=== PATIENT | female | born 1965 | race Caucasian/White ===

== ENCOUNTER 2020-09-02 02:16 | Emergency (ER) | payer BC, SELFPAY ==
--- NOTE | 2020-09-02 | ECG_ITS ---
Test Reason : TACHY Blood Pressure : / mmHG Vent. Rate : 124 BPM Atrial Rate : 124 BPM P-R Int : 150 ms QRS Dur : 072 ms QT Int : 298 ms P-R-T Axes : 064 065 040 degrees QTc Int : 428 ms Sinus tachycardia Otherwise normal ECG No previous ECGs available Referred By: Edwin Elliott Electronically Signed By:Kian Gramajo
[2020-09-02 02:25] VITALS: BP 216/110; PULSE 120; RESP 18; TEMP 37.1; O2SAT 98; BMI 23.1
[2020-09-02] MEDS: 0.9 % Sodium Chloride 1,000 ML 999 ML IV ×2 (02:41→03:44)
[2020-09-02] MEDS: ondansetron HCL 4 MG/2 ML VIAL IVPUSH (02:41)
[2020-09-02] MEDS: LORazepam 2 MG/ML VIAL IVPUSH ×2 (02:42→03:44)
[2020-09-02 02:49] VITALS: BP 170/90; PULSE 109; RESP 20; O2SAT 96
[2020-09-02 02:53] LABS: Basophils Absolute Auto 0.1 X10*3/uL (0.0-0.2); Basophils Percent Auto 0.8 % (0-2); Eosinophils Absolute Auto 0.1 X10*3/uL (0.0-0.4); Eosinophils Percent Auto 0.9 % (0-4); Hemoglobin 14.5 g/dl (12.0-16.0); Imm Gran Abs Auto 0.03 X10*3/uL (0.00-0.03); Imm Gran Pct Auto 0.4 % (0.0-0.4); Lymphocytes Percent Auto 12.6 % (20-40); MANUAL DIFF FLAG NO; Mean Corpuscular HGB Conc 36.3 g/dl (31.0-35.0); Mean Corpuscular Volume 88.3 fL (80-98); Mean Platelet Volume 9.6 fL (9.4-12.3); Monocytes Absolute Auto 0.7 X10*3/uL (0.1-1.2); Monocytes Percent Auto 9.2 % (2-11); Neutrophils Absolute Auto 5.8 X10*3/uL (2.0-8.3); Neutrophils Percent Auto 76.1 % (45-73); Platelet Count 221 X10*3/uL (160-400); Red Blood Count 4.53 X10*6/uL (4.20-5.50); Red Cell Distribution Width 11.8 % (11.0-16.0); White Blood Count 7.6 X10*3/uL (4.8-10.8)
[2020-09-02 03:13] LABS: Ethanol < 10 mg/dL
--- NOTE | 2020-09-02 03:19 | PC.NURSE ---
due to elevated CIWA 2nd IV established. pt put on seziure precautions.
[2020-09-02 03:23] LABS: Alanine Aminotransferase 37 U/L (0-31); Albumin Level 4.9 g/dL (3.5-5.0); Alkaline Phosphatase 97 U/L (39-117); Anion Gap 15 (12-20); Aspartate Amino Transferase 69 U/L (5-31); Bilirubin Total 0.6 mg/dL (0.0-1.0); Blood Urea Nitrogen 2 mg/dL (9-16); Calcium 9.6 mg/dL (8.4-10.2); Carbon Dioxide 27 mmol/L (22-29); Chloride 97 mmol/L (96-108); Creatinine Clr Calc Pharmacy 71.1; Estimated Glomerular Filt Rate > 60; Glucose Random 130 mg/dL (60-115); Lipase 25 U/L (8-78); Potassium 3.9 mmol/L (3.3-5.1); Sodium 135 mmol/L (135-145); Total Protein 7.8 g/dL (6.5-8.0)
--- NOTE | 2020-09-02 03:29 | ED_ITS ---
HPI - General Adult General Chief complaint: ETOH/Substance Use Stated complaint: N/V DIZZINESS Time Seen by Provider: 09/02/20 02:33 Source: patient Mode of arrival: EMS Limitations: no limitations History of Present Illness HPI narrative: 55-year-old female who presents emergency department for evaluation of nausea, vomiting and requesting evaluation for alcohol detox. Patient states that she has been drinking alcohol daily for many years with no significant period of sobriety. She states she drinks 12-14 beers per day. She states over the last 2 days she has had nausea and vomiting and has not been able to eat or drink except for she is able to drink alcohol. She states that her last drink of alcohol was yesterday around 4:00 p.m.. She states this evening she was feeling very shaky and very anxious, she was also feeling very weak. She continued to have nausea, vomiting and she also had diarrhea, 2 episodes per day therefore she called an ambulance and came to the emergency department for evaluation. Patient states she would like to get into a detox program to get help with her alcohol use disorder. She denied fever, chills, chest pain, shortness of breath, abdominal pain. Related Data Previous Rx's Medication Instructions Recorded citalopram 10 mg tablet 10 mg PO DAILY #90 cap 03/01/20 chlordiazepoxide HCl 50 mg PO TID 4 Days #24 cap 09/02/20 ondansetron 4 mg PO Q6-8H PRN #14 tab 09/02/20 Allergies Allergy/AdvReac Type Severity Reaction Status Date / Time No Known Allergies Allergy Verified 12/17/19 11:40 Review of Systems Review of Systems: Yes all other systems are reviewed and are negative [facility] Past Medical History [facility] Narrative: Social history: The patient denies tobacco use. She does drink 12-14 beers per day. She denied drug use. Medical History Anxiety EtOH dependence Surgical History History of left knee surgery History of thumb surgery Family History Family History Father No problems noted. Mother Glaucoma Brother No problems noted. Brother No problems noted. Brother No problems noted. Social History Social History Alcohol intake: current Alcohol intake frequency: 3 or more drinks per day Alcohol type: beer and wine Patient Tobacco Use Status: Current everyday Tobacco user Smoked in Last 30 Days: Yes Use of substances other than those prescribed or required for medical reasons: No Advance Directives: No Advance Directives Information Provided: No Patient : No Physical Exam Vital Signs: Vital Signs: Last Vital Signs Temp 98.7 F 09/02/20 02:25 Pulse 90 09/02/20 06:00 Resp 18 09/02/20 06:00 BP 147/77 H 09/02/20 06:00 Pulse Ox 96 09/02/20 06:00 Body Mass Index 23.1 Const: General: cooperative and other (Tremulous, anxious.) O rientation/consciousness: oriented to person and oriented to place Limita tions: no limitations HENMT: Head: Yes normal to inspection, Yes normocephalic and Yes atraumatic Ears: external ears normal General nose exam: Normal external nose present Face and sinus: Yes normal facial exam Mouth: Normal oral and palatal mucosa present Throat: Yes posterior oropharynx normal Eyes: Periorbital: periorbital findings normal Eyelids: Yes eyelids normal Conjunctivae: conjunctivae normal Sclerae: sclerae normal Corneas: corneas normal Pupils: Equal, round and reactive pupils present Direct Ophthalmoscopy: normal light reflex Neck: Neck: Yes full ROM, Yes no lymphadenopathy, Yes no meningeal signs, Yes trachea midline and Yes supple Chest: Chest palpation & inspection: normal inspection of the chest and normal palpation of entire chest wall Resp: Effort & Inspection: normal respiratory effort and able to speak in complete sentences Auscultation: clear to auscultation bilaterally Cardio: Rate: regular rate Rhythm: regular rhythm Heart sounds: S1 normal heart sound present, S2 normal heart sound present and no murmurs GI: Inspection: Yes normal to inspection Palpation (GI): Soft to palpation, nontender, no guarding, not rigid and No hepatosplenomegaly present : General: Yes no CVA tenderness Back/Spine/Pelvis: Back: no CVA tenderness Cervical Spine: normal cervical lordosis Thoracic/Lumbar Spine: thoracic and lumbar spine normal to inspection Skin: Lesions: no lesions Rashes: no rashes Wounds: no wounds Neuro: General: oriented to person, oriented to place and no meningeal signs Cranial nerves: Yes CN's II-XII intact bilaterally and Yes Equal, round and reactive pupils present Cognition (Neuro): normal cognition Motor exam (neuro): 5/5 motor strength present throughout Extrem: General: Yes normal to inspection and Yes full ROM Psych: Appearance: well kempt Mental Status: mental status grossly normal Speech and movement: Normal speech and movement present Affect: normal affect Attitude: cooperative Thought process: Normal thought process present Thought content: Normal thought content present Course Course Course Narrative: 55-year-old female with a history of alcohol use disorder who presents emergency department for evaluation of 2 days of nausea, vomiting and diarrhea. The patient has been able to continue to drink alcohol and her last drink was yesterday at around 4:00 p.m.. Patient presented to the emergency department requesting alcohol detox, she was also feeling tremulous and anxious. Vital signs revealed that she was hypertensive with a blood pressure of 216/110 and tachycardic with a pulse of 120. She appears to be anxious and she was tremulous. She had no abdominal tenderness on exam was otherwise unremarkable. She was ordered to get normal saline IV x2 L and Ativan 2 mg IV. 0333: Patient got some improvement after receiving the above treatment. She was ordered to get a 2nd dose of Ativan 2 mg IV. Laboratory evaluation revealed a normal CBC. Comprehensive metabolic panel revealed an elevated glucose of 130, elevated AST and ALT of 69 and 37. Lipase was normal. Serum alcohol level was below detectable limits. 0652: The patient's laboratory evaluation did reveal slight elevation in her AST and ALT otherwise was unremarkable. The patient did have a good response with the above treatment for her withdrawal symptoms. She was ordered to get Ativan 2 mg orally. The patient will be discharged home to pursue outpatient therapy for her detox. She was given a packet local detox facilities to contact. 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 The patient will be discharged with a prescription for Librium to help per with potential DT symptoms. The patient was given verbal and printed instructions prior to discharge. The patient was advised to follow-up with their PCP in 2 days and to return to the emergency department if their symptoms get worse or if they develop any new symptoms that are concerning to them. Medical Decision Making Lab Data Result diagrams: 09/02/20 02:49 09/02/20 02:49 Labs: Lab Results 09/02/20 09/02/20 09/02/20 Range/Units 02:49 02:49 02:49 WBC 7.6 (4.8-10.8) X10*3/uL RBC 4.53 (4.20-5.50) X10*6/uL Hgb 14.5 (12.0-16.0) g/dl Hct 40.0 (37-47) % MCV 88.3 (80-98) fL MCH 32.0 (27.0-33.0) pg MCHC 36.3 H (31.0-35.0) g/dl RDW 11.8 (11.0-16.0) % Plt Count 221 (160-400) X10*3/uL MPV 9.6 (9.4-12.3) fL Immature Gran % (Auto) 0.4 (0.0-0.4) % Neut % (Auto) 76.1 H (45-73) % Lymph % (Auto) 12.6 L (20-40) % [place] % (Auto) 9.2 (2-11) % Eos % (Auto) 0.9 (0-4) % Baso % (Auto) 0.8 (0-2) % Lymph # (Auto) 1.0 L (1.2-4.9) X10*3/uL [place] # (Auto) 0.7 (0.1-1.2) X10*3/uL Eos # (Auto) 0.1 (0.0-0.4) X10*3/uL Baso # (Auto) 0.1 (0.0-0.2) X10*3/uL Abs Immat Gran (auto) 0.03 (0.00-0.03) X10*3/uL Absolute Neuts (auto) 5.8 (2.0-8.3) X10*3/uL Absolute Nucleated RBC 0.000 (0.0-0.012) X10*3/uL Nucleated RBC % (auto) 0.0 (0.0-0.2) /100WBC Sodium 135 (135-145) mmol/L Potassium 3.9 (3.3-5.1) mmol/L Chloride 97 (96-108) mmol/L Carbon Dioxide 27 (22-29) mmol/L Anion Gap 15 (12-20) BUN 2 L (9-16) mg/dL Creatinine 0.79 (0.5-1.4) mg/dL Estim Creat Clear Calc 71.1 Estimated GFR > 60 Random Glucose 130 H (60-115) mg/dL Calcium 9.6 (8.4-10.2) mg/dL Total Bilirubin 0.6 (0.0-1.0) mg/dL AST 69 H (5-31) U/L ALT 37 H (0-31) U/L Alkaline Phosphatase 97 (39-117) U/L Total Protein 7.8 (6.5-8.0) g/dL Albumin 4.9 (3.5-5.0) g/dL Lipase 25 (8-78) U/L Ethyl Alcohol < 10 mg/dL Discharge Plan Discharge Clinical Impression: Alcohol use disorder, Acute dehydration Alcohol withdrawal syndrome Qualifiers: Complication of substance-induced condition: uncomplicated Qualified Code(s): F10.230 - Alcohol dependence with withdrawal, uncomplicated Vomiting Qualifiers: Vomiting type: unspecified Vomiting Intractability: non-intractable Nausea presence: with nausea Qualified Code(s): R11.2 - Nausea with vomiting, unspecified Patient Disposition: Home, Self-Care Instructions: Alcohol Withdrawal (ED), Alcohol Use Disorder (ED) Additional Instructions: Your laboratory evaluation was unremarkable except for a slight elevation to of your liver tests (AST and ALT). This is a sign that the alcohol that you are drinking starting to affect your health and starting to hurt your liver therefore it is important that you pursue outpatient detox treatment. Talk to your human resources department to see if they can help you get into det ox program. Also, call the detox programs on the list that we gave you. If there is an opening at one of these facilities. Take Librium 50 mg pills, 1 pill 3 times a day for 5 days. This medication is a benzodiazepine and will help with your withdrawal symptoms. This medication can also be addicting, if your concerned about addiction do not have to get this prescription filled or you can ask the pharmacist for less pills than prescribed. Prescriptions: New chlordiazepoxide HCl 25 mg capsule 50 mg PO TID 4 Days Qty: 24 RF: 0 ondansetron 4 mg tablet,disintegrating 4 mg PO Q6-8H PRN (Reason: nausea and vomiting) Qty: 14 RF: 0 No Action citalopram 10 mg tablet 10 mg PO DAILY Qty: 90 RF: 1
[2020-09-02 04:00] VITALS: BP 154/77; PULSE 100; RESP 18; O2SAT 100
--- NOTE | 2020-09-02 04:45 | PC.NURSE ---
pt gave permission to speak to gordo about condition only [phone]
[2020-09-02 06:00] VITALS: BP 147/77; PULSE 90; RESP 18; O2SAT 96
[2020-09-02] MEDS: LORazepam 1 MG TABLET 2 MG PO (07:24)
[2020-09-02 07:26] VITALS: BP 160/85; PULSE 93
== END 2020-09-02 07:39 | disposition home or self-care (01) ==
PROVIDERS: Emergency Provider Emergency Medicine Emergency Medical Services; PCP Internal Medicine
DX: F10.230 Alcohol dependence with withdrawal, uncomplicated (principal); Y90.0 Blood alcohol level of less than 20 mg/100 ml; E86.0 Dehydration; R11.2 Nausea with vomiting, unspecified
CPT/HCPCS: 36415; 80053; 82077; 83690; 85025; 93005; 96361; 96374; 96375; 96376; 99284; 99285; J2060; J2405

== ENCOUNTER → 2020-12-22 14:28 | Outpatient (BNVA) | payer OTHER, SELFPAY | PROVIDERS: PCP Internal Medicine; Visit Provider Physician Assistant Medical | DX: S46.812A Strain of other muscles, fascia and tendons at shoulder and upper arm level, left arm, initial encounter (principal); S16.1XXA Strain of muscle, fascia and tendon at neck level, initial encounter; X50.3XXA Overexertion from repetitive movements, initial encounter | CPT/HCPCS: 99202 ==

== ENCOUNTER → 2020-12-24 13:30 | Outpatient (BNVA) | payer OTHER, SELFPAY | PROVIDERS: PCP Internal Medicine; Visit Provider Physician Assistant | DX: S16.1XXA Strain of muscle, fascia and tendon at neck level, initial encounter (principal); X58.XXXA Exposure to other specified factors, initial encounter | CPT/HCPCS: 99214 ==

== ENCOUNTER → 2020-12-31 13:48 | Outpatient (BNVA) | payer OTHER, SELFPAY | PROVIDERS: PCP Internal Medicine; Visit Provider Physician Assistant | DX: S16.1XXA Strain of muscle, fascia and tendon at neck level, initial encounter (principal); X58.XXXA Exposure to other specified factors, initial encounter | CPT/HCPCS: 99213 ==

== ENCOUNTER → 2021-01-07 14:01 | Outpatient (BNVA) | payer OTHER, SELFPAY | PROVIDERS: PCP Internal Medicine; Visit Provider Physician Assistant | DX: S16.1XXA Strain of muscle, fascia and tendon at neck level, initial encounter (principal); X58.XXXA Exposure to other specified factors, initial encounter | CPT/HCPCS: 72052; 99215 ==

== ENCOUNTER → 2021-01-19 11:07 | Outpatient (BNVA) | payer OTHER, SELFPAY | PROVIDERS: PCP Internal Medicine; Visit Provider Physician Assistant | DX: M54.2 Cervicalgia (principal) | CPT/HCPCS: 99214 ==

== ENCOUNTER → 2021-01-27 10:47 | Outpatient (BNVA) | payer OTHER, SELFPAY | PROVIDERS: PCP Internal Medicine; Visit Provider Physician Assistant | DX: S16.1XXD Strain of muscle, fascia and tendon at neck level, subsequent encounter (principal); X58.XXXD Exposure to other specified factors, subsequent encounter; M47.812 Spondylosis without myelopathy or radiculopathy, cervical region | CPT/HCPCS: 99213 ==

== ENCOUNTER 2021-01-28 18:51 | Outpatient (REF) | payer OTHER, SELFPAY ==
--- NOTE | ~2021-01-28 | MR_ITS ---
EXAMINATION: MR CERVICAL SPINE WITHOUT CONTRAST CLINICAL INFORMATION: Reaching turning injury. Left-sided neck pain. COMPARISON: None available. TECHNIQUE: MRI of the cervical spine was performed using routine sequences without contrast. FINDINGS: The cervical vertebral bodies maintain normal heights. There is grade 1 anterolisthesis of C3 on C4 and C4 on C5. There is severe disc height loss at C5-C6. No bone marrow edema is seen. There is mild prominence of the central ependymal canal at the C6-C7 level. No andrew syrinx is seen. There is no evidence of cord edema. The imaged portions of the intracranial contents appear normal. The extraspinal soft tissues appear normal. SPINAL LEVELS: C2-C3: No posterior disc abnormality. No spinal canal or neural foraminal stenosis. C3-C4: Severe left and moderate right facet arthropathy. Moderate to severe left neural foraminal stenosis. No spinal canal stenosis. C4-C5: Disc osteophyte complex with uncovertebral hypertrophy and severe right and moderate left facet arthropathy resulting in moderate right neural foraminal stenosis. No spinal canal stenosis. C5-C6: Disc osteophyte complex with uncovertebral hypertrophy and mild to moderate right facet arthropathy resulting in severe right and moderate to severe left neural foraminal stenosis. No spinal canal stenosis. C6-C7: Disc osteophyte complex with ligamentum flavum infolding resulting in mild spinal canal stenosis. Uncovertebral hypertrophy and mild facet arthropathy results in moderate right and mild left neural foraminal stenosis. C7-T1: No posterior disc abnormality. No spinal canal or neural foraminal stenosis. MR/MR cervical spine wo con IMPRESSION: Multilevel degenerative spondylotic changes. Severe disc height loss at C5-C6. Mild prominence of the central ependymal canal seen at the C6-C7 level. No significant narrowing of the spinal canal. Neural foraminal stenosis appears moderate to severe on the left at C3-C4, moderate on the right at C4-C5, severe on the right and moderate to severe on the left at C5-C6, and moderate on the right at C6-C7.
== END 2021-01-28 18:52 | disposition home or self-care (01) ==
LOC: HO.MRI 18:51
PROVIDERS: PCP Internal Medicine; Visit Provider Internal Medicine
DX: M54.2 Cervicalgia (principal)
CPT/HCPCS: 72141

== ENCOUNTER → 2021-02-02 09:11 | Outpatient (BNVA) | payer OTHER, SELFPAY | PROVIDERS: PCP Internal Medicine; Visit Provider Physician Assistant | DX: S16.1XXD Strain of muscle, fascia and tendon at neck level, subsequent encounter (principal); X58.XXXD Exposure to other specified factors, subsequent encounter | CPT/HCPCS: 99213 ==

== ENCOUNTER 2021-04-12 08:43 | Outpatient (REF) | payer BC, SELFPAY ==
[2021-04-12 12:12] LABS: Vitamin D 25-OH Total 12.1 ng/mL (>30)
[2021-04-12 12:13] LABS: Alanine Aminotransferase 13 U/L (0-31); Anion Gap 10 (12-20); Aspartate Amino Transferase 17 U/L (5-31); Blood Urea Nitrogen 8 mg/dL (9-16); Carbon Dioxide 30 mmol/L (22-29); Chloride 103 mmol/L (96-108); Cholesterol 244 mg/dL; Estimated Glomerular Filt Rate > 60; Glucose Fasting 90 mg/dL (60-99); HDL Cholesterol 50 mg/dL; LDL Cholesterol Calculated 166 mg/dl; Potassium 4.3 mmol/L (3.3-5.1); Sodium 139 mmol/L (135-145); Triglycerides 141 mg/dL
== END 2021-04-12 08:44 | disposition home or self-care (01) ==
LOC: HO.HMGCLDS 08:43
PROVIDERS: Visit Provider Internal Medicine
DX: Z00.01 Encounter for general adult medical examination with abnormal findings (principal); I10 Essential (primary) hypertension; Z78.0 Asymptomatic menopausal state
CPT/HCPCS: 36415; 80048; 80061; 82306; 84450; 84460

== ENCOUNTER 2022-09-08 08:58 | Outpatient (REF) | payer BC, SELFPAY ==
[2022-09-08 12:32] LABS: Alanine Aminotransferase 12 U/L (0-31); Anion Gap 8 (12-20); Aspartate Amino Transferase 17 U/L (5-31); Blood Urea Nitrogen 13 mg/dL (9-16); Calcium 9.5 mg/dL (8.4-10.2); Carbon Dioxide 29 mmol/L (22-29); Chloride 107 mmol/L (96-108); Cholesterol 183 mg/dL; Estimated Glomerular Filt Rate > 60; Glucose Fasting 90 mg/dL (60-99); HDL Cholesterol 55 mg/dL; LDL Cholesterol Calculated 114 mg/dl; Potassium 4.3 mmol/L (3.3-5.1); Sodium 140 mmol/L (135-145); Triglycerides 72 mg/dL
[2022-09-08 12:38] LABS: Vitamin D 25-OH Total 42.9 ng/mL (>30)
== END 2022-09-08 08:59 | disposition home or self-care (01) ==
LOC: HO.HMGCLDS 08:58
PROVIDERS: PCP Internal Medicine; Visit Provider Internal Medicine
DX: Z00.01 Encounter for general adult medical examination with abnormal findings (principal); E55.9 Vitamin D deficiency, unspecified; F41.8 Other specified anxiety disorders; E78.5 Hyperlipidemia, unspecified
CPT/HCPCS: 36415; 80048; 80061; 82306; 84450; 84460

== ENCOUNTER 2023-09-10 11:05 | Outpatient (AMB) | payer BC, SELFPAY ==
--- NOTE | 2023-09-10 11:27 | A.OFFPC_ITS ---
Vital Signs 09/10/23 11:37 Height 5 ft 4 in Weight 129 lb BMI 22.1 BP 136/78 Blood Pressure Location Lt brachial Position Sitting Pulse 77 Pulse Source Pulse Oximeter Pulse Oximetry (%) 99 Oxygen Delivery Method Room Air Intake Visit Reasons: PE Intake Note: Pt is here today for her PE: Mammogram 10/12/22: Never had a colonoscopy Allergies No Known Allergies Allergy (Verified 09/16/23 15:45) Medication List - Last Reconciled 09/16/23 by Angie Tran MD bupropion HCl SR 100 mg PO QAM citalopram 40 mg PO DAILY Tobacco use date assessed: 09/10/23 Dental Screening Dental Screen Date: 09/10/23 Did you have a dental visit in the last 12 months?: Yes Did you have a dental problem in the last 6 months where you did not have access to dental care?: No Was dental information given to patient?: Patient has dentist HPI PE HPI Details 58-year-old lady with depression anxiety stable controlled on present treatment with citalopram and bupropion, has dyslipidemia, history of cervical spinal stenosis seen by [facility] and referred for physical therapy and prescribed meloxicam, here today for physical exam. She is up-to-date with her screening mammogram done 2022, due again later this year but declines further testing, has never had a s colon cancer screening. She is overdue for her cervical cancer screening but declines Pap smear and pelvic exam. [facility] Medical History (Updated 09/16/23 @ 15:50 by Angie Tran MD) Neck pain Cervical spinal stenosis Vitamin D deficiency Papanicolaou smear declined Refused influenza vaccine Dyslipidemia Spinal stenosis, multilevel Recovering alcoholic in remission Depression with anxiety Elevated blood pressure reading in office without diagnosis of hypertension Surgical History History of left knee surgery History of thumb surgery Family History Father No problems noted. Mother Glaucoma Brother No problems noted. Brother No problems noted. Brother No problems noted. Social History Housing: House Alcohol intake: former Year quit: 2020 Patient Tobacco Use Status: Former Tobacco user Years Smoked: 8 yrs e-Cigarette/Vaping Use: Never Used Second Hand Smoke Exposure: No service: No Current occupational status: employed Cognitive needs: No Hearing needs: No Vision needs: Yes Questionnaire PHQ-9 Over the last 2 weeks, how often have you been bothered by any of the following problems? 1. Little interest or pleasure in doing things: not at all 2. Feeling down, depressed, or hopeless: not at all 3. Trouble falling or staying asleep, or sleeping too much: not at all 4. Feeling tired or having little energy: not at all 5. Poor appetite or overeating: not at all 6. Feeling bad about yourself - or that you are a failure or have let yourself or your family down: not at all 7. Trouble concentrating on things, such as reading the newspaper or watching television: not at all 8. Moving or speaking so slowly that other people could have noticed. Or the opposite - being so fidgety or restless that you have been moving around a lot more than usual: not at all 9. Thoughts that you would be better off or of hurting yourself in some way: not at all Total score: 0 Depression Screening Interpretation: Negative Depression Screening Done: Yes 45979 - PHQ-9 Billing: Yes Source: Developed by Drs. Shay Green, Desiree Thomson, Tani Pike and colleagues, with an educational tyrone from [employer]. Thrive Questionnaire Date Thrive assessed: 09/10/23 I am a: Patient What is your living situation today?: I have a steady place to live Within the past 12 months, did the food you bought not last and you didn't have the money to get more?: Never true Within the past 12 months, did you worry whether your food would run out before you got money to buy more?: Never true Do you have trouble paying for medicines?: No Do you have trouble getting transportation to medical appointments?: No Do you have trouble paying your heating and electricity bill?: No Do you have trouble taking care of your child, family member or friend?: No Do you have trouble with day-to-day activities such as bathing, preparing meals, shopping, managing finances, etc.?: No Are you currently unemployed and looking for a job?: No Are you interested in more education?: No THRIVE Score: 0 AUDIT C Alcohol Use Questionnaire (AUDIT-C) 1. How often do you have a drink containing alcohol?: Never (Recovering alcoholic) Total Score: 0 ADRIAN-7 AMB Questionnaire ADRIAN-7 Date ADRIAN - 7 assessed: 09/10/23 Feeling nervous, anxious, or on edge: 0 = Not at all Not being able to stop or control worryin = Not at all Worrying too much about different things: 0 = Not at all Trouble relaxin = Not at all Being so restless that it is hard to sit still: 0 = Not at all Becoming easily annoyed or irritable: 0 = Not at all Feeling afraid as if something awful might happen: 0 = Not at all Total ADRIAN-7 score (0-4 normal; 5-9 mild; 10-14 moderate; 15-21 severe): 0 Source: Developed by Drs. Shay Green, Desiree Thomson, Tani Pike and colleagues, with an educational tyrone from [employer]. ADRIAN-7 Assessment Billing ADRIAN-7 Assessment Tool: ADRIAN-7 Assessment 94497 Review of Systems Const Denies fever(s), Denies lethargy, Denies malaise and Denies weakness Eyes Reports other (Goes to [facility]) ENT Denies dizziness Card Denies chest pain, Denies rapid heart rate, Denies irregular heart rhythm, Denies lightheadedness and Denies dyspnea Resp Denies cough and Denies dyspnea GI Reports no additional complaints Reports no additional complaints Musc Denies muscle weakness and Denies numbness Skin/Breast Denies breast swelling, Denies breast pain, Denies breast mass, Denies lesions and Denies rash Neuro Denies dizziness, Denies numbness and Denies weakness Psych Reports no additional complaints Endo Reports no additional complaints Edgardo/Lymph Reports no additional complaints Aller/Immun Reports no additional complaints Physical exam (Primary Care) Vital Signs: Last Vital Signs Pulse 77 09/10/23 11:37 BP 136/78 09/10/23 11:37 Pulse Ox 99 09/10/23 11:37 Oxygen Delivery Method Room Air 09/10/23 11:37 BMI result Body Mass Index 22.1 Tobacco/Smoking Status: Tobacco use Status Tobacco use date assessed 09/10/23 09/10/23 11:31 Patient Tobacco Use Status Former Tobacco user 09/10/23 11:31 e-Cigarette/Vaping Use Never Used 09/10/23 11:31 PHQ-9: PHQ-9 Score PHQ-9: Total score 0 09/10/23 11:51 Depression Screening Interpretation: Negative Thrive Assessment: Date of Thrive Assessment Date Thrive assessed 09/10/23 09/10/23 11:31 Const General: healthy appearing, comfortable and no acute distress Nutritional Appearance: average body habitus Orientation/consciousness: patient oriented x3 HENMT Head: Yes normocephalic Ears: hearing grossly normal bilaterally, external ears normal, TM's normal bilaterally and EAC's normal General nose exam: Normal external nose present Face and sinus: Yes face symmetric Mouth: Normal oral and palatal mucosa present, oropharynx normal and moist mucous membranes Eyes General: appearance normal, both eyes and all related structures Pupils: Equal, round and reactive pupils present EOM: EOMs intact bilaterally Neck Neck: Yes full ROM, Yes no lymphadenopathy and Yes supple Thyroid: Thyroid normal Chest Other: Declined breast exam Resp Auscultation: clear to auscultation bilaterally Cardio Rate: regular rate Rhythm: regular rhythm Heart sounds: S1 normal heart sound present and S2 normal heart sound present GI Palpation (GI): Soft to palpation, nontender, no guarding and no masses Other: Declined Pap and pelvic exam General: Yes no CVA tenderness Back/Spine/Pelvis Back: no CVA tenderness and No back tenderness Skin Other: Nodular nontender mass overlying dorsal aspect of right wrist Neuro General: patient oriented x3, gait normal, moves all extremities and no focal motor deficits Cranial nerves: Yes Equal, round and reactive pupils present Extrem General: Yes normal to inspection, Yes full ROM, Yes no joint enlargement, Yes no clubbing, cyanosis or edema, Yes no calf tenderness and Yes normal gait Psych Appearance: grossly normal and well kempt Mental Status: mental status grossly normal Speech and movement: Normal speech and movement present Affect: normal affect Attitude: cooperative Thought process: Normal thought process present Thought content: Normal thought content present Assessment and Plan Assessment & Plan (1) Annual visit for general adult medical examination with abnormal findings: Code(s): Z00.01 - Encounter for general adult medical examination with abnormal findings Plan: Will check appropriate labs. Recommended dental visit every 6 months and regular eye exams, at least every 2 years. Take adequate calcium in diet and vitamin-D 3 at 2000 IU per cap once a day, in addition to weight-bearing exercises to help maintain good muscle tone and weight control. Instructed to do self-breast exam, patient declined getting any screening mammogram, also declined getting cervical cancer screening. Referred for colon cancer screening. Declines COVID vaccine, or flu shot but will schedule appointment to get her Shingrix vaccination (2) Encounter for screening for malignant neoplasm of colon: Code(s): Z12.11 - Encounter for screening for malignant neoplasm of colon Plan: GI consult ordered for colon cancer screen (3) Depression with anxiety: Code(s): F41.8 - Other specified anxiety disorders Plan: Controlled on bupropion and citalopram, refill sent (4) Vitamin D deficiency: Code(s): E55.9 - Vitamin D deficiency, unspecified Plan: Check vitamin-D (5) Papanicolaou smear declined: Code(s): Z53.20 - Procedure and treatment not carried out because of patient's decision for unspecified reasons Plan: Patient declines getting cervical cancer screening or pelvic exam (6) Mammogram declined: Code(s): Z53.20 - Procedure and treatment not carried out because of patient's decision for unspecified reasons Plan: Patient does not want to get screening mammogram or breast exam (7) Left wrist tendonitis: Code(s): M77.8 - Other enthesopathies, not elsewhere classified Plan: Advised to massaged diclofenac gel to volar aspect of left wrist 3 times a day as needed, or apply Salonpas patch to affected joint twice a day as needed for pain control. resting of joint strongly recommend (8) Ganglion cyst: Code(s): M67.40 - Ganglion, unspecified site Plan: Currently asymptomatic, no need for any treatment at present (9) Advanced directives, counseling/discussion: Code(s): Z71.89 - Other specified counseling Plan: Initiated the conversation about Advanced Directives. Advanced Directives help patients prepare for current and future decisions about their medical treatment and place of care. Discussed with patient that it is a process where a patients current condition and prognosis are reviewed, their wishes for information regarding their illness are elicited, and likely medical dilemmas are presented and options discussed. Healthcare proxy form completed. The form can be amended as needed, reviewed yearly and make changes as needed (10) Cervical spinal stenosis: Code(s): M48.02 - Spinal stenosis, cervical region Plan: Seen and evaluated by [facility], and had physical therapy with improvement Orders: Orders Lipid Panel 09/10/23 E55.9 - Vitamin D deficiency, unspecified, F41.8 - Other specified anxiety disorders, Z00.01 - Encounter for general adult medical examination with abnormal findings Basic Metabolic Panel Fasting 09/10/23 E55.9 - Vitamin D deficiency, unspecified, F41.8 - Other specified anxiety disorders, Z00.01 - Encounter for general adult medical examination with abnormal findings Aspartate Amino Transferase 09/10/23 E55.9 - Vitamin D deficiency, unspecified, F41.8 - Other specified anxiety disorders, Z00.01 - Encounter for general adult medical examination with abnormal findings Alanine Aminotransferase 09/10/23 E55.9 - Vitamin D deficiency, unspecified, F41.8 - Other specified anxiety disorders, Z00.01 - Encounter for general adult medical examination with abnormal findings Vitamin D 25-OH Total 09/10/23 E55.9 - Vitamin D deficiency, unspecified, F41.8 - Other specified anxiety disorders, Z00.01 - Encounter for general adult medical examination with abnormal findings Referrals Gastroenterology Referral Z00.01 - Encounter for general adult medical examination with abnormal findings, Z12.11 - Encounter for screening for malignant neoplasm of colon Medications: Refilled citalopram 40 mg PO DAILY 90 tabs 4RF F41.8 - Other specified anxiety disorders bupropion HCl SR 100 mg PO QAM 90 tabs 4RF F41.8 - Other specified anxiety disorders Coding Level of Care Code Est Pt Prev Care 40-64y(79786) Diagnoses Annual visit for general adult medical examination with abnormal findings Z00.01 Encounter for screening for malignant neoplasm of colon Z12.11 Depression with anxiety F41.8 Vitamin D deficiency E55.9 Papanicolaou smear declined Z53.20 Mammogram declined Z53.20 Left wrist tendonitis M77.8 Ganglion cyst M67.40 Advanced directives, counseling/discussion Z71.89 Cervical spinal stenosis M48.02 Additional Codes ADRIAN-7 Assessment Billing - ADRIAN-7 Assessment Tool: ADRIAN-7 Assessment [id number] ([id number])
[2023-09-10 11:37] VITALS: BP 136/78; PULSE 77; O2SAT 99; BMI 22.1
== END 2023-09-10 12:08 | disposition home or self-care (01) ==
PROVIDERS: PCP Internal Medicine; Visit Provider Internal Medicine
DX: Z00.00 Encounter for general adult medical examination without abnormal findings (principal); Z12.11 Encounter for screening for malignant neoplasm of colon; F41.8 Other specified anxiety disorders; E55.9 Vitamin D deficiency, unspecified; Z53.20 Procedure and treatment not carried out because of patient's decision for unspecified reasons; M77.8 Other enthesopathies, not elsewhere classified; M67.40 Ganglion, unspecified site; M48.02 Spinal stenosis, cervical region
CPT/HCPCS: 99396

== ENCOUNTER 2023-11-08 12:24 | Outpatient (AMB) | payer BC, SELFPAY ==
--- NOTE | 2023-11-08 12:26 | A.OFFVIS_ITS ---
Vital Signs 11/08/23 12:46 Height 5 ft 4 in Weight 127 lb 13.89 oz BMI 21.9 BP 160/69 H Blood Pressure Location Lt brachial Position Sitting Pulse 87 Intake Visit Reasons: Colonoscopy Screening Intake Note: Zee presents in the office as a colonoscopy screening. CC: She has never had a colonoscopy before so she is here now for a consultation. W[employer] Required: No Allergies No Known Allergies Allergy (Verified 11/08/23 12:47) HPI HPI Colonoscopy Screening: Details: 58-year-old female here for preprocedural meeting to discuss a screening colonoscopy. She is referred by Angie Tran PMX High cholesterol - fixed with diet Cervical spine stenosis Depression with anxiety History of alcoholism in remission * SURGICAL HISTORY Left knee surgery Thumb surgery * ALLERGIES: NKDA * [employer] LABS: none recent TODAY'S VISIT This is her first colonoscopy. She denies any bowel or upper GI problems. There are no prior problems with anesthesia or sedation. She denies any cardiac or respiratory problems. No ID problems. There is no known FHX of CRC or polyps. [facility] Medical History Neck pain Cervical spinal stenosis Vitamin D deficiency Papanicolaou smear declined Refused influenza vaccine Dyslipidemia Spinal stenosis, multilevel Recovering alcoholic in remission Depression with anxiety Elevated blood pressure reading in office without diagnosis of hypertension Surgical History History of left knee surgery History of thumb surgery Family History Father No problems noted. Mother Glaucoma Brother No problems noted. Brother No problems noted. Brother No problems noted. Social History Housing: House Alcohol intake: former Year quit: 2020 Patient Tobacco Use Status: Former Tobacco user Years Smoked: 8 yrs e-Cigarette/Vaping Use: Never Used Second Hand Smoke Exposure: No service: No Current occupational status: employed Cognitive needs: No Hearing needs: No Vision needs: Yes Review of Systems Const Denies fatigue, Denies fever(s), Denies night sweats, Denies poor appetite and Denies weight loss ENT Reports Normal hearing present, Denies dental pain, Denies dysphagia, Denies hearing loss, Denies mouth pain, Denies odynophagia, Denies throat swelling, Denies tongue swelling and Reports other (Dentition adequate) Card Reports no additional complaints Resp Reports no additional complaints GI Details: Denies abdominal pain, Denies melena, Denies bloating, Denies hematochezia, Denies constipation, Denies GI cramping, Denies dysphagia, Denies excessive flatus, Denies early satiety, Denies heartburn, Denies diarrhea, Denies nausea, Denies odynophagia, Denies vomiting and Denies hematemesis Skin/Breast Denies pruritus, Denies lesions, Denies rash and Denies jaundice Neuro Reports Normal hearing present and Denies Abnormal speech present Endo Denies fatigue Aller/Immun Denies throat swelling and Denies tongue swelling Physical Exam Vital Signs: Last Vital Signs Pulse 87 11/08/23 12:46 BP 160/69 H 11/08/23 12:46 BMI result Body Mass Index 21.9 Const General: cooperative, no acute distress, well developed and well groomed Nutritional Appearance: average body habitus and well nourished Orientation/consciousness: oriented to person, oriented to place and oriented to time Limitations: No language barrier HEENT Head: Yes normocephalic and Yes atraumatic Eyes General: appearance normal, both eyes and all related structures Pupils: Equal, round and reactive pupils present Neck Neck: Yes normal visual inspection and Yes no lymphadenopathy Thyroid: Thyroid normal Resp Effort & Inspection: normal respiratory effort and able to speak in complete sentences Auscultation: clear to auscultation bilaterally Cardio Rate: regular rate Rhythm: regular rhythm Heart sounds: Normal, physiologic split S2 sound present Peripheral pulses: radial pulses present and posterior tibial pulses present GI Inspection: No distended and No Abdominal panniculus present Palpation (GI): Soft to palpation, nontender, no guarding, not rigid and No hepatosplenomegaly present Percussion: Yes normal to percussion Auscultation: normal bowel sounds Rectal Exam - Female: deferred Skin General skin exam: no rashes or lesions noted, turgor normal, skin not dry, no jaundice, No spider nevi and no striae Rashes: no rashes Nails: normal Neuro General: oriented to person, oriented to place and oriented to time Cranial nerves: Yes Equal, round and reactive pupils present and Yes Normal hearing present Speech: No Abnormal speech present Extrem General: Yes normal to inspection, No clubbing, No cyanosis and No edema Psych Appearance: grossly normal and well kempt Mental Status: mental status grossly normal Speech and movement: Normal speech and movement present Affect: normal affect Attitude: cooperative Thought process: Normal thought process present and not confabulating Thought content: Normal thought content present Insight: Fair insight present (Psych) Judgement: Fair judgement present (Psych) Assessment & Plan Assessment & Plan (1) Pre-op examination: Code(s): Z01.818 - Encounter for other preprocedural examination Category: Medical Plan This is her first colonoscopy. She denies any bowel or upper GI problems. There are no prior problems with anesthesia or sedation. She denies any cardiac or respiratory problems. No ID problems. There is no known FHX of CRC or polyps. Orders: Orders Comprehensive Met. Panel Today Z01.818 - Encounter for other preprocedural examination Complete Blood Count Auto Diff Today Z01.818 - Encounter for other preprocedu ral examination Colonoscopy - GI Use Only Today Z01.818 - Encounter for other preprocedural examination Medications: New peg 3350-electrolytes 236-22.74-6.74 -5.86 gram (Golytely) until fecal effluent is clear; do not exceed a total volume of 2,000 mL 240 mL PO Q10M 4,000 mL 0RF 1 day Z12.11 - Encounter for screening for malignant neoplasm of colon bisacodyl (Dulcolax (bisacodyl)) 10 mg (2 x 5 mg) PO BEDTIME 4 tabs 0RF 2 days Coding Level of Care Code New Pt Level 3 (62798) Diagnoses Pre-op examination Z01.818
[2023-11-08 12:46] VITALS: BP 160/69; PULSE 87; BMI 21.9
== END 2023-11-08 13:18 | disposition home or self-care (01) ==
PROVIDERS: PCP Internal Medicine; Visit Provider Nurse Practitioner
DX: Z01.818 Encounter for other preprocedural examination (principal); Z12.11 Encounter for screening for malignant neoplasm of colon
CPT/HCPCS: S0285

== ENCOUNTER → 2023-11-08 12:24 | Outpatient (BNVA) | payer BC, SELFPAY | PROVIDERS: PCP Internal Medicine; Visit Provider Nurse Practitioner ==

== ENCOUNTER 2024-04-01 09:53 | Day surgery (SDC) | payer BC, SELFPAY ==
[2024-03-28 14:39] VITALS: BMI 22.0
--- NOTE | 2024-03-31 09:57 | HO.ANESPROP2 ---
Documented by User: Charissa Lopez NP 03/31/24 10:00 HPI - Anesthesia Eval Consult details Narrative: 59yo F for Colonoscopy PMFSH Active Problems Active Problems: All Active Problems Pre-op examination (Acute) Cervical spinal stenosis (Acute) Vitamin D deficiency (Acute) Papanicolaou smear declined (Acute) Refused influenza vaccine (Acute) Dyslipidemia (Acute) Depression with anxiety (Acute) Past Medical History Medical History Neck pain Cervical spinal stenosis Vitamin D deficiency Papanicolaou smear declined Refused influenza vaccine Dyslipidemia Spinal stenosis, multilevel Recovering alcoholic in remission Depression with anxiety Elevated blood pressure reading in office without diagnosis of hypertension Family History Family History Father No problems noted. Mother Glaucoma Brother No problems noted. Brother No problems noted. Brother No problems noted. Surgical History Surgical History History of left knee surgery History of thumb surgery Social History Social History Housing: House Alcohol intake: former Year quit: 2020 Patient Tobacco Use Status: Current someday Tobacco user Years Smoked: 8 yrs e-Cigarette/Vaping Use: Never Used Second Hand Smoke Exposure: No service: No Current occupational status: employed Cognitive needs: No Hearing needs: No Vision needs: Yes Meds Allergies Allergy/AdvReac Type Severity Reaction Status Date / Time No Known Allergies Allergy Verified 11/08/23 12:47 Exam Height,Weight and Vital Signs: Height 5 ft 4 in Weight 58.06 kg Assessment and Plan Assessment Anesthesia Assessment: Chart Reviewed Documented by User: Ritchie Petty MD 04/01/24 11:05 PMF Past Medical History Medical History Neck pain Cervical spinal stenosis Vitamin D deficiency Papanicolaou smear declined Refused influenza vaccine Dyslipidemia Spinal stenosis, multilevel Recovering alcoholic in remission Depression with anxiety Elevated blood pressure reading in office without diagnosis of hypertension Family History Family History Father No problems noted. Mother Glaucoma Brother No problems noted. Brother No problems noted. Brother No problems noted. Family history of problems with anesthesia: No Surgical History Surgical History History of left knee surgery History of thumb surgery History of Problems with Anesthesia: No Social History Social History Housing: House Alcohol intake: former Year quit: 2020 Patient Tobacco Use Status: Current someday Tobacco user Years Smoked: 8 yrs e-Cigarette/Vaping Use: Never Used Second Hand Smoke Exposure: No service: No Current occupational status: employed Cognitive needs: No Hearing needs: No Vision needs: Yes Meds Allergies Allergy/AdvReac Type Severity Reaction Status Date / Time No Known Allergies Allergy Verified 11/08/23 12:47 Exam Airway Mallampati Class: II TM Dist: >3cm Neck ROM: Full Loose/Missing/Broken Teeth: No Heart: ok Lungs: ok Assessment and Plan Assessment Anesthesia Assessment: Anesthesia Plan Discussed Final Anesthetic Review Family History of Problems with Anesthesia: No History of Problems with Anesthesia: No NPO: Yes ASA Class: III Final Preanesthetic Review: No Changes in Pt Med Stat, Meds/Allgs Chart Reviewed, Consent Obtained/Reviewed and Anes Risks/Benef Reviewed Patient Risk: Intermediate Procedure Risk: Low Anesthetic Plan Anesthetic Plan: MAC: and Agree w/ Assess. and Plan Disposition: Standard PACU
[2024-04-01 10:03] VITALS: BP 128/78; PULSE 95; RESP 16; TEMP 36.7; O2SAT 98; BMI 21.5
[2024-04-01] MEDS: Lactated Ringers 1,000 ML 100 ML IVCONT (10:16)
--- NOTE | 2024-04-01 10:31 | P.HPSUR_ITS ---
Pre-Procedural Eval Section A - 24 Hr Update-Section A only Date of Service: 04/01/24 Section B - Complete if H&P > 30 days Chief Complaint: screening Relevant Family History (Specify if Yes): No Relevant Social History: None Present Medications: see Short Stay Collaborative assessment Medical History: Significant History (Neck pain Cervical spinal stenosis Vitamin D deficiency Papanicolaou smear declined Refused influenza vaccine Dyslipidemia Spinal stenosis, multilevel Recovering alcoholic in remission Depression with anxiety Elevated blood pressure reading in office without diagnosis of hyperten betsey) History of Previous Operations: Relevant previous surgery/procedure and date(s) (History of left knee surgery History of thumb surgery) Allergies: Allergies Allergy/AdvReac Type Severity Reaction Status Date / Time No Known Allergies Allergy Verified 11/08/23 12:47 Review of Systems Sugical H&P ROS: Negative: Constitution, Cardiovascular, Respiratory, Neurological, Psychiatric, Hem-Onc, Allergic/Immunologic, Gastrointestinal, Genitourinary, Musculoskeletal, Integumentary, Endocrine and Eyes/Ears/Nose/Throat Exam Surgical H&P Exam: Normal: HEENT, Normal: Heart, Normal: Lungs, Normal: Extremi ties, Normal: Abdomen, Normal: Skin and Normal: Neurological Plan Diagnosis/Plan: Unchanged I have reviewed the history and physical and performed a pertinent physical examination on my patient. No changes have occurred unless specified. Time Spent With Patient Time: Total time managing care of this patient today ____ minutes.
--- NOTE | 2024-04-01 10:55 | HO.OPN-COLON ---
Colonoscopy Operative Note Operative Note Date of Service: 04/01/24 Narrative: Operative Information Procedure Description: Colonoscopy Indication: screening Anesthesia: MAC COLONOSCOPY Instrument: Olympus variable stiffness pediatric scope 190L Colonoscopy Monitoring: Vital signs and clinical assessment, continuous EKG monitoring, Pulse oximetry, Carbon Dioxide monitoring and blood pressure monitoring were done throughout the procedure. Colon withdrawal time was 6 minutes. Procedure: The patient was placed in the left lateral decubitis position and pre-procedure medications were administered. After a digital rectal examination of the ano-rectum, the video colonoscope was inserted into the rectum and advanced through the colon to the cecum/TI. The colonoscope was slowly withdrawn in a retrograde panoramic fashion and the colon mucosa was carefully examined including a retroflexed view of the rectum. Findings and interventions are described below. Procedure Difficulty: easy Findings: Terminal Ileum-normal Cecum:normal Right sided retroflexion- normal Ascending Colon: normal Transverse Colon -normal Descending Colon:normal Sigmoid Colon: normal Rectum: Retroflexion with small internal hemorrhoids seen, grade I Anorectum - normal Intervention: none Colon preparation: [place] Bowel Preparation Scale Right colon; 2 Transverse colon: 3 Left colon; 3 (0 = Unprepared colon segment with mucosa not seen due to solid stool that cannot be cleared. 1 = Portion of mucosa of the colon segment seen, but other areas of the colon segment not well seen due to staining, residual stool and/or opaque liquid. 2 = Minor amount of residual staining, small fragments of stool and/or opaque liquid, but mucosa of colon segment seen well. 3 = Entire mucosa of colon segment seen well with no residual staining, small fragments of stool or opaque liquid) Impression and Post Procedure Diagnosis: internal hemorrhoids Plan: High fiber diet leaflet Avoid straining at stool, epsom salts and sitz bath, anusol supps or cream Repeat Colonoscopy in 10 years or earlier if clinically indicated Above findings were reviewed with the patient and relevant handouts were provided if indicated.
[2024-04-01 11:03] VITALS: BP 94/64; PULSE 64; RESP 16; TEMP 36.1; O2SAT 98
--- OUTSIDE RECORDS SUMMARY | 2024-04-01 11:07 | XMS_ITS | Clinical Summary ---
Author Organization [facility] Facility Address [address] [place] [id number] Care Team Providers Care Claims Collector Name Role Phone Isa Tran MD Primary Care Provider [phone] Social History Tobacco Use Types Packs/Day Years Used Date Smoking Tobacco: Never Assessed Comments Unknown Sex and Gender Information Value Date Recorded Sex Assigned at Not on file Legal Sex Female 9:39 AM EDT Gender Identity Not on file Sexual Orientation Not on file Plan of Treatment Health Maintenance Due Date Last Done Comments Breast Cancer Screening 1967 Hepatitis B Vaccine (1 of 3 - 19+ 3-dose series) 1986 Colorectal Cancer Screening: Annual FOBT 2016 Colorectal Cancer Screening: Colonoscopy 2016 Colorectal Cancer Screening: Sigmoidoscopy 2016 Influenza Vaccine (#1) 2023 Pneumococcal Vaccine: Pediat rics (0 to 5 Years) and At-Risk Patients (6 to 64 Years) Aged Out No longer eligible b ased on patient's age to complete this topic Insurance [facility] Care Teams Claims Collector Relationship Specialty Start Date End Date Isa Tran MD 1959 [place] [address] PCP - General Internal Medicine 11/03/20
[2024-04-01 11:25] VITALS: BP 132/72; PULSE 64; RESP 16; TEMP 36.3; O2SAT 98
== END 2024-04-01 12:25 | disposition home or self-care (01) ==
PROVIDERS: PCP Internal Medicine; Visit Provider Internal Medicine Gastroenterology
PROC: 0DJD8ZZ Inspection of Lower Intestinal Tract, Via Natural or Artificial Opening Endoscopic (ICD-10-PCS; CPT 45378; principal; 2024-04-01 11:40)
DX: Z12.11 Encounter for screening for malignant neoplasm of colon (principal); K64.0 First degree hemorrhoids; E78.5 Hyperlipidemia, unspecified; E55.9 Vitamin D deficiency, unspecified; F41.8 Other specified anxiety disorders; F17.200 Nicotine dependence, unspecified, uncomplicated
CPT/HCPCS: 45378; J2003; J2704

== ENCOUNTER → 2024-04-01 09:53 | Outpatient (BNV) | payer BC, SELFPAY | PROVIDERS: PCP Internal Medicine; Visit Provider Internal Medicine Gastroenterology | DX: Z12.11 Encounter for screening for malignant neoplasm of colon (principal); K64.0 First degree hemorrhoids | CPT/HCPCS: 45378 ==